=== PATIENT | male | born 1965 | race American Indian/Alaskan Native ===

== ENCOUNTER 2016-11-04 12:19 | Emergency (ER) | payer BC, MEDICARE ==
[2016-11-04 12:55] LABS: Basophils % (Auto) 0.1 % (0.0-1.8); Eosinophils % (Auto) 1.6 % (0.0-4.3); Hemoglobin 11.2 gm/dl (11.8-15.2); Mean Corpuscular HGB Conc 31 % (32-34); Mean Corpuscular Hemoglobin 26 pg (28-32); Mean Corpuscular Volume 83 fl (84-94); Platelet Count 202 K/mm3 (140-440); Red Blood Count 4.32 M/mm3 (3.65-5.03); Red Cell Distribution Width 14.2 % (13.2-15.2); White Blood Count 8.9 K/mm3 (4.5-11.0)
[2016-11-04 13:17] LABS: BUN/Creatinine Ratio 11.79; Calcium 9.2 mg/dL (8.4-10.2); Chloride 101.4 mmol/L (98-107); Potassium 4.3 mmol/L (3.6-5.0)
--- NOTE | 2016-11-04 14:06 | XRay Report ---
CHEST 2 VIEWS INDICATION: Shortness of breath. COMPARISON: 08/27/2013 FINDINGS: Frontal and lateral chest radiographs demonstrate new mild elevation of left hemidiaphragm and mild horizontal left basilar atelectasis or scarring. Clear remainder lungs. Interval CABG. Grossly normal heart size. No effusions or CHF. Intact bones. CONCLUSION: Interval CABG and mildly elevated left hemidiaphragm without acute chest process, as described. Thank you for the opportunity to participate in this patient's care.
[2016-11-04] MEDS ORDERED: TYLENOL PO ONE (20:45)
[2016-11-04] MEDS ORDERED: PROVENTIL IH ONE (20:45)
[2016-11-04] MEDS ORDERED: FLONASE NS ONE (20:45)
[2016-11-04] MEDS ORDERED: BENTYL IM ONE (20:45)
[2016-11-04] MEDS ORDERED: ATROVENT IH ONE (20:45)
--- NOTE | 2016-11-04 20:46 | Emergency Department Report ---
ED General Adult HPI - General Chief complaint: Upper Respiratory Infection Stated complaint: FLU SX Time Seen by Provider: 11/04/16 20:34 Source: patient, RN notes reviewed, old records reviewed Mode of arrival: Ambulatory Limitations: No Limitations - History of Present Illness Initial comments: Nephrology: Dr. Santos Cardiology: Dr. Clemente Past medical history: Cadaveric right-sided failed renal transplant, diabetes, hypertension, heart disease status post CABG This is a 51-year-old male. He is previously unknown to me. The patient presents to the ER with 6 days of facial fullness, nasal congestion, cough, mucus production, body aches. 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 He has no vomiting or diaphoresis. He has no chest pain. There is no leg pain or leg swelling. He reports that he feels like he is at his baseline weight. He reports that he is coughing, and reports exposure to tobacco smoke at home. His symptoms are constant. They have no exacerbating or relieving factors, with the exception of exposure to smoke, and a recent new truck from work. Patient also describes mild watery diarrhea over the past week. He describes it as brown and watery. There is no blood. No recent antibiotic use. No recent sick contacts. No testicular pain. No irritative or obstructive urinary symptoms. -: Gradual Location: head, face, mouth Severity scale (0 -10): 0 Quality: aching Consistency: constant Improves with: other (as per history of present illness) Worsens with: other (as per history of present illness) Associated Symptoms: cough, headaches, shortness of breath - Related Data Home Medications Medication Instructions Recorded Confirmed Last Taken ALPRAZolam [Xanax] 0.25 mg PO DAILY 08/27/13 07/26/14 Unknown Allopurinol [Zyloprim] 100 mg PO BID 08/27/13 07/26/14 07/26/14 Atorvastatin [Lipitor] 40 mg PO DAILY 08/27/13 07/26/14 1 Day Ago Clopidogrel Bisulfate [Plavix] 75 mg PO DAILY 08/27/13 07/26/14 07/26/14 Famotidine [Pepcid] 20 mg PO DAILY 08/27/13 07/26/14 Unknown Furosemide [Furosemide ORAL LIQ] 40 mg PO DAILY 05/07/26/14 07/26/14 Metoprolol Succinate [Toprol Xl] 200 mg PO DAILY 08/27/13 07/26/14 07/26/14 Mycophenolate [Cellcept] 500 mg PO BID 08/27/13 07/26/14 07/26/14 Potassium Citrate [Potassium 0 meq PO TID 08/27/13 07/26/14 Unknown Citrate ER] cloNIDine [Catapres] 0.2 mg PO BID 08/27/13 07/26/14 07/26/14 hydrALAZINE [Apresoline TAB] 75 mg PO TID 08/27/13 07/26/14 07/26/14 Aspirin [Aspirin TAB] 325 mg PO QDAY 07/26/14 07/26/14 07/26/14 Fenofibric Acid [Fibricor] 135 mg PO QDAY 07/26/14 07/26/14 07/26/14 Insulin Aspart [NovoLOG Flexpen] See Protocol TID 07/26/14 07/26/14 07/26/14 Insulin Glargine,Hum.rec.anlog 20 unit SQ QHS 07/26/14 07/26/14 1 Day Ago [Lantus Solostar] Sirolimus [Rapamune] 4 mg PO QDAY 07/26/14 07/26/14 07/26/14 Sodium Bicarbonate 650 mg PO BID 07/26/14 07/26/14 07/26/14 Previous Rx's Medication Instructions Recorded Last Taken Type Levofloxacin [Levaquin] 750 mg PO Q48H #6 tablet 08/30/13 Unknown Rx Albuterol Sulfate [Albuterol 0.63% 0.63 mg IH Q4HR PRN #2 ml 11/04/16 Unknown Rx NEBS] Albuterol Sulfate [Proair 90 mcg IH Q4HR PRN #2 aer.pow.ba 11/04/16 Unknown Rx Respiclick] Azithromycin [Zithromax Z-ABAD] 250 mg PO QDAY #6 tablet 11/04/16 Unknown Rx Benzonatate [Tessalon Perles] 100 mg PO Q8HR PRN #30 capsule 11/04/16 Unknown Rx Fluticasone [Flonase] 1 spray NS QDAY #1 bottle 11/04/16 Unknown Rx Ipratropium [place] [Atrovent Hfa] 12.9 gm IH Q4HR #2 hfa.aer.ad 11/04/16 Unknown Rx Ipratropium [Atrovent NEB] 0.5 mg IH Q4HR #2 ml 11/04/16 Unknown Rx Loratadine [Claritin] 10 mg PO DAILY #30 tablet 11/04/16 Unknown Rx Nebulizer [Compact Compressor 1 each MC QDAY #1 each 11/04/16 Unknown Rx Nebulizer] Allergies Allergy/AdvReac Type Severity Reaction Status Date / Time No Known Allergies Allergy Verified 11/04/16 12:22 ED Review of Systems ROS: Stated complaint: FLU SX Other details as noted in HPI Constitutional: malaise. denies: fever, weakness ENT: congestion Respiratory: cough Cardiovascular: denies: chest pain, palpitations Gastrointestinal: denies: nausea, vomiting Genitourinary: denies: dysuria Musculoskeletal: arthralgia, myalgia Skin: denies: lesions Neurological: weakness Psychiatric: as per HPI ED Past Medical Hx - Past Medical History Previous Medical History?: Yes Hx Hypertension: Yes Hx Congestive Heart Failure: No Hx Diabetes: Yes Hx Renal Disease: Yes Hx Asthma: No Hx COPD: No - Surgical History Hx Coronary Stent: Yes (LAD 2007) Additional Surgical History: Kidney transplant 2008; bilateral toe amputation. CABG 2014 - Social History Smoking Status: Never Smoker Substance Use Type: None - Medications Home Medications: Home Medications Medication Instructions Recorded Confirmed Last Taken Type ALPRAZolam [Xanax] 0.25 mg PO DAILY 08/27/13 07/26/14 Unknown History Allopurinol [Zyloprim] 100 mg PO BID 08/27/13 07/26/14 07/26/14 History Atorvastatin [Lipitor] 40 mg PO DAILY 08/27/13 07/26/14 1 Day Ago History Clopidogrel Bisulfate [Plavix] 75 mg PO DAILY 08/27/13 07/26/14 07/26/14 History Famotidine [Pepcid] 20 mg PO DAILY 08/27/13 07/26/14 Unknown History Furosemide [Furosemide ORAL LIQ] 40 mg PO DAILY 08/27/13 07/26/14 07/26/14 History Metoprolol Succinate [Toprol Xl] 200 mg PO DAILY 08/27/13 07/26/14 07/26/14 History Mycophenolate [Cellcept] 500 mg PO BID 08/27/13 07/26/14 07/26/14 History Potassium Citrate [Potassium 0 meq PO TID 08/27/13 07/26/14 Unknown History Citrate ER] cloNIDine [Catapres] 0.2 mg PO BID 08/27/13 07/26/14 07/26/14 History hydrALAZINE [Apresoline TAB] 75 mg PO TID 08/27/13 07/26/14 07/26/14 History Levofloxacin [Levaquin] 750 mg PO Q48H #6 tablet 08/30/13 07/26/14 Unknown Rx Aspirin [Aspirin TAB] 325 mg PO QDAY 07/26/14 07/26/14 07/26/14 History Fenofibric Acid [Fibricor] 135 mg PO QDAY 07/26/14 07/26/14 07/26/14 History Insulin Aspart [NovoLOG Flexpen] See Protocol TID 07/26/14 07/26/14 07/26/14 History Insulin Glargine,Hum.rec.anlog 20 unit SQ QHS 07/26/14 07/26/14 1 Day Ago History [Lantus Solostar] Sirolimus [Rapamune] 4 mg PO QDAY 07/26/14 07/26/14 07/26/14 History Sodium Bicarbonate 650 mg PO BID 07/26/14 07/26/14 07/26/14 History Albuterol Sulfate [Albuterol 0.63% 0.63 mg IH Q4HR PRN #2 ml 11/04/16 Unknown Rx NEBS] Albuterol Sulfate [Proair 90 mcg IH Q4HR PRN #2 aer.pow.ba 11/04/16 Unknown Rx Respiclick] Azithromycin [Zithromax Z-ABAD] 250 mg PO QDAY #6 tablet 11/04/16 Unknown Rx Benzonatate [Tessalon Perles] 100 mg PO Q8HR PRN #30 capsule 11/04/16 Unknown Rx Fluticasone [Flonase] 1 spray NS QDAY #1 bottle 11/04/16 Unknown Rx Ipratropium [place] [Atrovent Hfa] 12.9 gm IH Q4HR #2 hfa.aer.ad 11/04/16 Unknown Rx Ipratropium [Atrovent NEB] 0.5 mg IH Q4HR #2 ml 11/04/16 Unknown Rx Loratadine [Claritin] 10 mg PO DAILY #30 tablet 11/04/16 Unknown Rx Nebulizer [Compact Compressor 1 each MC QDAY #1 each 11/04/16 Unknown Rx Nebulizer] ED Physical Exam - General Limitations: No Limitations General appearance: alert, in no apparent distress - Head Head exam: Present: atraumatic, normocephalic - Eye Eye exam: Present: normal appearance, PERRL, EOMI. Absent: nystagmus - ENT ENT exam: Present: normal exam, normal orophraynx, mucous membranes moist, normal external ear exam, other (there is bilateral sinus tenderness maxillary. There is mild frontal sinus tenderness. There is nasal congestion.) - Neck Neck exam: Present: normal inspection, full ROM. Absent: tenderness, meningismus - Respiratory Respiratory exam: Present: rhonchi. Absent: respiratory distress - Cardiovascular Cardiovascular Exam: Present: regular rate, normal rhythm, normal heart sounds. Absent: bradycardia, tachycardia, systolic murmur, diastolic murmur, rubs, gallop - GI/Abdominal GI/Abdominal exam: Present: soft, normal bowel sounds. Absent: distended, tenderness, guarding, rebound, rigid - Rectal Rectal exam: Present: deferred - Extremities Exam Extremities exam: Present: normal inspection, full ROM, normal capillary refill. Absent: calf tenderness - Back Exam Back exam: Present: normal inspection, full ROM. Absent: tenderness, CVA tenderness (R), CVA tenderness (L), muscle spasm, paraspinal tenderness, vertebral tenderness - Neurological Exam Neurological exam: Present: alert, oriented X3, normal gait, other (Extraocular movements intact. Tongue midline. No facial droop. Facial sensation intact to light touch in the V1, V2, V3 distribution bilaterally. 5 and 5 strength in 4 extremities.. Sensation is intact to light touch in 4 extremities.). Absent : motor sensory deficit - Psychiatric Psychiatric exam: Present: normal affect, normal mood - Skin Skin exam: Present: warm, dry, intact, normal color. Absent: rash ED Course Vital Signs 11/04/16 11/04/16 11/04/16 12:22 18:37 20:00 Temperature 98.6 F 98.5 F Pulse Rate 110 H 74 70 Pulse Rate [ Anterior Bilateral Throughout] Respiratory 20 20 20 Rate Respiratory Rate [Anterior Bilateral Throughout] Blood Pressure 127/85 Blood Pressure 161/92 167/90 [Left] O2 Sat by Pulse 100 98 100 Oximetry 11/04/16 11/04/16 11/04/16 22:00 22:13 22:56 Temperature Pulse Rate 78 Pulse Rate [ 97 H 99 H Anterior Bilateral Throughout] Respiratory 18 Rate Respiratory 18 18 Rate [Anterior Bilateral Throughout] Blood Pressure Blood Pressure 173/101 [Left] O2 Sat by Pulse 98 Oximetry ED Medical Decision Making - Lab Data Result diagrams: 11/04/16 12:40 11/04/16 12:40 Vital Signs 11/04/16 11/04/16 12:22 18:37 Temperature 98.6 F 98.5 F Pulse Rate 110 H 74 Respiratory 20 20 Rate Blood Pressure 127/85 Blood Pressure 161/92 [Left] O2 Sat by Pulse 100 98 Oximetry Lab Results 11/04/16 11/04/16 Range/Units 12:40 12:40 WBC 8.9 (4.5-11.0) K/mm3 RBC 4.32 (3.65-5.03) M/mm3 Hgb 11.2 L (11.8-15.2) gm/dl Hct 36.0 (35.5-45.6) % MCV 83 L (84-94) fl MCH 26 L (28-32) pg MCHC 31 L (32-34) % RDW 14.2 (13.2-15.2) % Plt Count 202 (140-440) K/mm3 Lymph % (Auto) 5.5 L (13.4-35.0) % [place] % (Auto) 8.2 H (0.0-7.3) % Eos % (Auto) 1.6 (0.0-4.3) % Baso % (Auto) 0.1 (0.0-1.8) % Lymph # 0.5 L (1.2-5.4) K/mm3 [place] # 0.7 (0.0-0.8) K/mm3 Eos # 0.1 (0.0-0.4) K/mm3 Baso # 0.0 (0.0-0.1) K/mm3 Seg Neutrophils % 84.6 H (40.0-70.0) % Seg Neutrophils # 7.5 (1.8-7.7) K/mm3 Sodium 137 (137-145) mmol/L Potassium 4.3 (3.6-5.0) mmol/L Chloride 101.4 (98-107) mmol/L Carbon Dioxide 17 L (22-30) mmol/L Anion Gap 23 mmol/L BUN 46 H (9-20) mg/dL Creatinine 3.9 H (0.8-1.5) mg/dL Estimated GFR 20 ml/min BUN/Creatinine Ratio 11.79 % Glucose 246 H (75-100) mg/dL Calcium 9.2 (8.4-10.2) mg/dL - EKG Data -: EKG Interpreted by Me - EKG Data 11/04/16 22:21 normal sinus, 73 beats from them, left axis deviation, abnormal EKG, not morphologically consistent with STEMI, appears unchanged compared to prior EKG from 2014. - Radiology Data Radiology results: report reviewed, image reviewed X-ray of the chest demonstrates elevated left hemidiaphragm, left lower lobe atelectasis and/or scarring, status post CABG. Otherwise no acute disease. 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 He is afebrile with reassuring vital signs with the exception of hypertension which is chronic. Low risk by well's criteria, had some wheezing and rhonchi, felt improved after albuterol and Atrovent therapy. Acute coronary syndrome unlikely given constellation of symptoms. Creatinine appears to be at baseline as per verbal report from the patient. Patient will be discharged with albuterol, Atrovent, Flonase, Claritin. I don' t believe he requires antibiotic therapy at this time, but in case his symptoms don't improve he'll be discharged with a prescription to take it if his symptoms do not resolve. He is reliable, and he is also instructed to not be exposed to smoke secondhand. Critical care attestation.: If time is entered above; I have spent that time in minutes in the direct care of this critically ill patient, excluding procedure time. ED Disposition Clinical Impression: Bronchitis Disposition: [id number] TO HOME OR SELFCARE Is pt being admited?: No Does the pt Need Aspirin: No Condition: Stable Instructions: Chronic Bronchitis (ED) Additional Instructions: Take medications as directed. Follow-up with her primary care doctor or early childhood teacher assistant within the next 7-10 days. Do not take antibiotics unless symptoms persist for the next 5-7 days. Avoid exposure to secondhand smoke. His blood pressure was elevated. This should be followed up by either your early childhood teacher assistant or primary care doctor or [employer] consultant within the next month. Long -term complications of hypertension/elevated blood pressure include stroke, heart attack, disability, , paralysis, loss of quality of life. Return to the ER right away with fevers, chills, chest pain, shortness of breath, confusion, intractable nausea or vomiting, inability to tolerate liquid feeds. Prescriptions: Albuterol Sulfate [Albuterol 0.63% NEBS] 0.63 mg IH Q4HR PRN #2 ml PRN Reason: Wheezing Albuterol Sulfate [Proair Respiclick] 90 mcg IH Q4HR PRN #2 aer.pow.ba PRN Reason: Wheezing Azithromycin [Zithromax Z-ABAD] 250 mg PO QDAY #6 tablet Benzonatate [Tessalon Perles] 100 mg PO Q8HR PRN #30 capsule PRN Reason: Cough Fluticasone [Flonase] 1 spray NS QDAY #1 bottle Ipratropium [Atrovent NEB] 0.5 mg IH Q4HR #2 ml Ipratropium [place] [Atrovent Hfa] 12.9 gm IH Q4HR #2 hfa.aer.ad Loratadine [Claritin] 10 mg PO DAILY #30 tablet Nebulizer [Compact Compressor Nebulizer] 1 each MC QDAY #1 each Referrals: PRIMARY CARE, [Primary Care Provider] - 3-5 Days SHADIA BALES MD [Staff Physician] - 3-5 Days FRANCISCO CLEMENTE MD [Staff Physician] - 3-5 Days
[2016-11-04 22:48] VITALS: BP 173/101
== END 2016-11-04 22:40 | disposition home or self-care (01) ==
LOC: ED 12:19
DX: J40 Bronchitis, not specified as acute or chronic (principal); E11.9 Type 2 diabetes mellitus without complications; I10 Essential (primary) hypertension; Z79.82 Long term (current) use of aspirin; Z94.0 Kidney transplant status; Z79.4 Long term (current) use of insulin
CPT/HCPCS: 36415; 71020; 80048; 85025; 87040; 93005; 93010; 94640; 96372; 99284; J0500